=== PATIENT | male | born 1980 | race Caucasian/White ===

== ENCOUNTER 2021-05-07 06:35 | Emergency (ER) | payer OTHER, SELFPAY ==
[2021-05-07] MEDS ORDERED: Ibuprofen 200 MG TAB ONE (07:23)
== END 2021-05-07 09:16 | disposition home or self-care (01) ==
LOC: ERS 06:35
DX: M79.644 Pain in right finger(s) (principal); F17.220 Nicotine dependence, chewing tobacco, uncomplicated

== ENCOUNTER 2021-06-12 12:36 | Emergency (ER) | payer OTHER ==
[2021-06-12 19:08] LABS: SARS-CoV-2 PCR by NAA DETECTED (NotDetected)
== END 2021-06-12 13:30 | disposition home or self-care (01) ==
LOC: ERS 12:36
DX: U07.1 COVID-19 (principal); F17.220 Nicotine dependence, chewing tobacco, uncomplicated
CPT/HCPCS: 99283; U0003; U0005